=== PATIENT | male | born 1940 | race Caucasian/White ===

== ENCOUNTER 2016-09-16 10:51 | Day surgery (SDC) | payer OTHER ==
[~2016-09-16] VITALS: Ht 170.2 cm; Wt 78.5 kg
[2016-09-16] MEDS ORDERED: MEPERIDINE HCL/PF 100 MG/ML AMP IM ONE (13:41)
[2016-09-16] MEDS ORDERED: KETOROLAC TROMETHAMINE 30 MG VIAL IVP ONE (13:41)
[2016-09-16] MEDS ORDERED: CEFAZOLIN 2 GM IVPB PREMIX 50 ML IV ONE (13:41)
[2016-09-16] MEDS ORDERED: LR 1,000 ML IV.SOLN IV ONE (13:41)
[2016-09-16] MEDS ORDERED: NS IRRIG SOLN 1000 ML IR ONE (13:41)
[2016-09-16] MEDS ORDERED: ROCURONIUM BROMIDE 10 MG/ML (ZEMURON) IV ONE (13:41)
[2016-09-16] MEDS ORDERED: PROPOFOL 200MG/ 20ML VIAL (DIPRIVAN) IV ONE (13:41)
[2016-09-16] MEDS ORDERED: ONDANSETRON HCL 4 MG/2 ML VIAL IVP ONE (13:41)
[2016-09-16] MEDS ORDERED: MIDAZOLAM HCL 5 MG/5 ML VIAL IVP ONE (13:41)
[2016-09-16] MEDS ORDERED: GLYCOPYRROLATE 0.2 MG/ML VIAL IJ ONE (13:41)
[2016-09-16] MEDS ORDERED: fentaNYL CITRATE/PF 100 MCG/2 ML AMP IVP ONE (13:41)
[2016-09-16] MEDS ORDERED: SEVOFLURANE 15 MIN GAS INH ONE (13:41)
[2016-09-16] MEDS ORDERED: POLYMYXIN 500,000/BACIT.10,000 UNITS in NS IRR 1 L IR ONE (13:42)
[2016-09-16] MEDS ORDERED: LR 1,000 ML IV ONE (14:43)
[2016-09-16] MEDS ORDERED: fentaNYL CITRATE/PF 100 MCG/2 ML AMP IVP PRN (14:45)
[2016-09-16] MEDS ORDERED: DIPHENHYDRAMINE INJ 50 MG/ML VIAL IVP PRN (14:45)
[2016-09-16] MEDS ORDERED: NALOXONE HCL 0.4 MG/ML AMP (NARCAN) IVP PRN (14:45)
[2016-09-16] MEDS ORDERED: NALBUPHINE HCL 10 MG/ML AMP IVP PRN (14:45)
[2016-09-16] MEDS ORDERED: ONDANSETRON HCL 4 MG/2 ML VIAL IVP PRN ×2 (14:45)
[2016-09-16] MEDS ORDERED: ePHEDrine sulfate 50 MG/ML VIAL IVP PRN (14:45)
[2016-09-16 17:56] VITALS: BP 144/76; PULSE 70; RESP 16; TEMP 97.4; O2SAT 97
[2016-09-16 20:00] VITALS: BP 149/71; PULSE 75; RESP 18; TEMP 97.8; O2SAT 98
[2016-09-17 01:29] VITALS: BP 139/66; PULSE 65; RESP 18; TEMP 97.7; O2SAT 92
[2016-09-17 05:53] VITALS: BP 125/55; PULSE 65; RESP 17; TEMP 98.1; O2SAT 92
[2016-09-17 08:16] VITALS: BP 126/71; PULSE 71; RESP 18; TEMP 99.3; O2SAT 91
[2016-09-17] MEDS ORDERED: HYDROcodone/ACETAMIN 5-325 MG TAB (NORCO/ VICODIN) PO PRN ×2 (10:15)
[2016-09-17 12:00] VITALS: BP 123/57; PULSE 61; RESP 21; TEMP 98; O2SAT 93
[2016-09-17] MEDS ORDERED: DOCU-144 PO (12:58)
[2016-09-17] MEDS ORDERED: HYDR-1189 PO (12:58)
[2016-09-17 14:02] VITALS: BP 121/64; PULSE 63; RESP 20; TEMP 98; O2SAT 92
== END 2016-09-17 15:00 | disposition home or self-care (01) ==
LOC: SDS 10:51 → SMU 10:53 → SDS 09-17 15:00
PROVIDERS: ATTEND Surgery
DX: K40.91 Unilateral inguinal hernia, without obstruction or gangrene, recurrent (principal); K42.9 Umbilical hernia without obstruction or gangrene; M19.90 Unspecified osteoarthritis, unspecified site; F17.200 Nicotine dependence, unspecified, uncomplicated
CPT/HCPCS: 49585; 49651; C1727; C1781 ×2; J0690; J1885; J2175; J2250; J2405; J2704; J3010; J3490; J7120